=== PATIENT | female | born 1970 ===

== ENCOUNTER → 2016-12-13 | Outpatient (CLI) | payer BC ==
[~2016-12-13] MED LIST: ACYC1CAP8 PO; AMPH10TA2 PO; CITA40TA12 PO; GLC/500 PO; IBUP-1050 PO; LISI40TA PO
[2016-12-13 13:42] LABS: ALT/SGPT 25 U/L (12-78); BLOOD UREA NITROGEN 13 mg/dl (7-18); BUN/CREATININE RATIO 20.6 (10-20); CALCIUM 8.7 mg/dl (8.5-10.1); CARBON DIOXIDE 29 mmol/L (21-32); CHLORIDE 105 mmol/L (98-107); CHOLESTEROL 147 mg/dl (0-200); CREATININE 0.64 mg/dl (0.60-1.20); GLUCOSE 84 mg/dl (70-99); SODIUM 141 mmol/L (136-145); TRIGLYCERIDES 123 mg/dl (0-150); VERY LOW DENSITY LIPOPROT CALC 25 mg/dl
[2016-12-13 13:52] LABS: ALB/GLOB RATIO 1.2 (0.9-2); ALKALINE PHOSPHATASE 49 U/L (45-117); AST/SGOT 17 U/L (15-37); CHOLESTEROL/HDL RATIO 3.3; HDL CHOLESTEROL 45 mg/dl; LDL CHOLESTEROL CALCULATED 77 mg/dl
[2016-12-13 14:22] LABS: ESTIMATED AVERAGE GLUCOSE 111 mg/dl; HA1C FLAG Normal (Normal)
== END | disposition home or self-care (01) ==
LOC: C.LABPVFM 09:10
PROVIDERS: ATTEND Family Medicine
DX: F41.9 Anxiety disorder, unspecified (principal); I10 Essential (primary) hypertension; E11.9 Type 2 diabetes mellitus without complications; Z13.220 Encounter for screening for lipoid disorders